=== PATIENT | female | born 1960 | race Caucasian/White ===

== ENCOUNTER → 2017-03-24 | Outpatient (CLI) | payer OTHER ==
[~2017-03-24] MED LIST: LOPRESSOR PO; SYNTHROID PO
--- NOTE | ~2017-03-24 | CR230 ---
[facility] A Service of [facility] & [facility] RADIOLOGY TEXT RESULTS PATIENT: RICHARD CURIEL LOCATION: [facility] : 58 UNIT #: [id number] AGE: [address]: Jessica Miles MD SEX: F ORDER DR: [id number] [facility] [address]. [place], [place] [address] [id number] O MR#: [id number] Acc #: [id number] NAME: RICHARD CURIEL : 1960 SEX: F STUDY DATE/TIME: 03/24/2017 9:02 UNIT: [facility] ROOM: STUDY DESCRIPTION: CR Shoulder Min 2 View Rt Attending Physician: Jessica Miles M.D. Ordering Physician: Jessica Miles M.D. Primary Care Physician: Sania Mosley M.D. MEDICAL IMAGING REPORT This report is preliminary unless electronic signature is present EXAM Right shoulder INDICATION Right shoulder pain for a week with no known injury. FINDINGS There are two images of the right shoulder. They both appear to be in internal rotation. There is no fracture visible. No definite dislocation is visible. IMPRESSION Both of the images appear to be in internal rotation and therefore posterior dislocation cannot be excluded but it should be clinically obvious. There is no visible fracture. Dictated by... Javon Ahmadi M.D. THIS IS AN ELECTRONICALLY VERIFIED REPORT Javon Ahmadi M.D. at 03/25/2017 7:39 AM ROSEMARY/nicole TD: 03/24/2017 21:20 JOB #: [id number] MEDICAL IMAGING REPORT Page 1 of 1 COPY
== END | disposition home or self-care (01) ==
LOC: CRAD 08:48 → CWCC 04-04 10:00
DX: M25.511 Pain in right shoulder (principal)
CPT/HCPCS: 73030